=== PATIENT | female | born 1995 | race African-American/Black ===

== ENCOUNTER 2017-02-07 09:58 | Emergency (ER) | payer SELFPAY ==
[2017-02-07 10:02] VITALS: BP 140/61; PULSE 114; TEMP 98.2; BMI 19.5
--- NOTE | 2017-02-07 10:43 | PDOC ---
History of Present Illness - General Chief Complaint: Eye Problem Stated Complaint: eye contusion Time Seen by Provider: 02/07/17 10:09 - History of Present Illness Initial Comments: 02/07/17 10:41 CHIEF COMPLAINT: eye contusion HISTORY OF PRESENT ILLNESS: 21 yo F with no PMH [facility] to [facility] with pain to L forehead s/p injury from work 4 days ag. Patient states she works at [employer] and she was putting a bowl up on a high rack when it fell and hit her head. She denies any change in vision but states she has a bit of a headache and felt dizzy a little yestedray. Patient reports being very anxious to be in a hospital because she is afraid of doctors. No recent travel or sick contacts. PAST MEDICAL HISTORY: Denies past medical history FAMILY HISTORY: Denies SOCIAL HISTORY: Denies tobacco, alcohol, illicit drug use. SURGICAL HISTORY: Denies ALLERGIES: No known drug allergies REVIEW OF SYSTEMS General/Constitutional: Denies fever or chills. Denies weakness, weight change. HEENT: "I felt a little dizzy after my head was hit." Denies change in vision. Denies ear pain or discharge. Denies sore throat. Cardiovascular: Denies chest pain or shortness of breath. Respiratory: Denies cough, wheezing, or hemoptysis. Gastrointestinal: Denies nausea, vomiting, diarrhea or constipation. Denies rectal bleeding. Genitourinary: Denies dysuria, frequency, or change in urination. Musculoskeletal: Denies joint or muscle swelling or pain. Denies neck or back pain. Skin and breasts: Denies rash or easy bruising. PHYSICAL EXAM General Appearance: Well-appearing, appropriately dressed. No apparent distress , no intoxication. HEENT: Faint ecchymosis to forehead at level of orbital bone. Mild photophobia appreciated. EOMI, PERRLA, normal ENT inspection, normal voice, TMs normal, pharynx normal. No conjunctival pallor. Neck: Supple. Trachea midline. No tenderness, rigidity, carotid bruit, stridor , lymphadenopathy, or thyromegaly. Respiratory/Chest: Lungs CTAB. Cardiovascular: RRR. S1, S2. Integumentary: Appropriate color, dry, warm. No cyanosis, erythema, jaundice or rash Neurologic: regional business development manager II-XII intact. Fully oriented, alert. Appropriate mood/affect. Motor strength 5/5. No appreciable EOM palsy, facial droop or sensory deficit. A&Ox3, follow commands, respond appropriately CN2-12: conjugate gaze, pupil round, equal and reactive to light. Visual field full to confrontation. EOMI without nystagmus, pursuit is smooth without saccade. Facial sensation and muscle activation intact bilaterally. Hearing intact bilaterally. Palate elevate symmetrically. Shoulder shrug and neck turn full strength. Tongue protrude midline. Motor: UE and LE strength 5/5 throughout bilaterally. Muscle tone and bulk normal. Cerebellar: Gait narrow based. No shuffling. Full hip flexion and knee flexion. Negative Romberg No involuntary movement noted. No pronator drift. No clonus. Past History - Past Medical History Allergies/Adverse Reactions: Allergies Allergy/AdvReac Type Severity Reaction Status Date / Time No Known Allergies Allergy Verified 02/07/17 10:02 Home Medications: Ambulatory Orders Naproxen 250 mg PO BID #14 tablet 02/07/17 Other medical history: pt denies - Psycho/Social/Smoking Cessation Hx Suicidal Ideation: No Smoking History: Never smoked Information on smoking cessation initiated: No Hx Alcohol Use: No Drug/Substance Use Hx: No Substance Use Type: None *Physical Exam - Vital Signs Last Vital Signs Temp Pulse Resp BP Pulse Ox 98.2 F 114 H 18 140/61 100 02/07/17 10:00 02/07/17 10:00 02/07/17 10:00 02/07/17 10:00 02/07/17 10:00 Medical Decision Making - Medical Decision Making 02/07/17 16:00 21 yo F with no PMH presents [facility] with mild headache s/p forehead injury. No CT indicated at this time. Patient is tachy to 117 but is tearful and reports being very anxious because she doesn't like doctors, tachycardia likely due to anxiety. Advised patient to take medication as prescribed and follow up with neuro within the week. Advised patient of signs and symptoms for return to ED. Patient verbalized understanding and agrees to plan. *DC/Admit/Observation/Transfer Diagnosis at time of Disposition: Forehead contusion Qualifiers: Encounter type: initial encounter Qualified Code(s): S00.83XA - Contusion of other part of head, initial encounter - Discharge Dispostion Disposition: HOME Condition at time of disposition: Stable Admit: No - Prescriptions Prescriptions: Naproxen 250 mg PO BID #14 tablet - Referrals Referrals: Johnathan Lutz MD [Staff Physician] - - Patient Instructions Printed Discharge Instructions: DI for Postconcussion Syndrome Additional Instructions: Please take medication as prescribed and follow up with neurologist within 2-3 days as discussed. If you experience any change in vision, difficulty speaking , swallowing, or walking, or your family or friends notice any other change in behavior, or you develop any new or worsening symptoms, please return to the ER. - Post Discharge Activity Work/School Note: Back to Work
== END 2017-02-07 11:06 | disposition home or self-care (01) ==
LOC: JERFT 09:58
DX: S00.83XA Contusion of other part of head, initial encounter (principal); W20.8XXA Other cause of strike by thrown, projected or falling object, initial encounter; Y93.89 Activity, other specified; Y92.511 Restaurant or cafe as the place of occurrence of the external cause; Y99.0 Civilian activity done for income or pay
CPT/HCPCS: 99281-25

== ENCOUNTER 2022-11-04 09:10 | Inpatient (IN) | payer OTHER ==
[2022-11-04] MEDS ORDERED: ELECTROLYTE-148 SOLN 1,000 ML IV SCH (10:00)
[2022-11-04] MEDS ORDERED: FENTANYL/BUPIVACAINE/NS/PF - PCEA - 50 ML DISP.SYRIN EP ONE (10:24)
[2022-11-04] MEDS ORDERED: BUPIVACAINE HCL/PF 0.25% (2.5MG/ML) 10 ML VIAL ONE (10:54)
[2022-11-04 11:42] LABS: BASO % 0.4 % (0-2.0); EOS % 0.1 % (0-4.5); HEMATOCRIT 39.7 % (32.4-45.2); HEMOGLOBIN 13.1 GM/dL (10.7-15.3); LYMPH % 6.6 % (8-40); MCH 27.1 pg (25.7-33.7); MCHC 33.1 g/dl (32.0-36.0); MEAN CELL VOLUME 81.6 fl (80-96); MEAN PLT VOLUME 8.3 fl (7.5-11.1); MONO % 4.9 % (3.8-10.2); PLATELET COUNT 286 10^3/uL (134-434); RBC 4.86 M/mm3 (3.60-5.2); RDW 14.7 % (11.6-15.6); WHITE BLOOD COUNT 18.1 K/mm3 (4.0-10.0)
[2022-11-04 11:50] LABS: INR 0.96 (0.83-1.09)
[2022-11-04 11:53] LABS: ACTIVATED PTT 26.9 SECONDS (25.2-36.5)
[2022-11-04 11:59] LABS: CALCIUM 9.4 mg/dL (8.5-10.1)
[2022-11-04 12:03] LABS: CREATININE 0.6 mg/dL (0.55-1.3)
[2022-11-04] MEDS ORDERED: NALOXONE HCL 0.4 MG/ML VIAL IVPUSH PRN (12:05)
[2022-11-04] MEDS ORDERED: FENTANYL/BUPIVACAINE/NS/PF - PCEA - 50 ML DISP.SYRIN EP SCH (12:15)
[2022-11-04 12:19] VITALS: BMI 36.0
[2022-11-04] MEDS ORDERED: OXYTOCIN 30 UNITS in 0.9% NS 30 UNIT/500 ML INFUS.BAG IVPB ONE (13:16)
[2022-11-04] MEDS ORDERED: OXYTOCIN 20 UNITS in 0.9% NS 20 UNIT/1,000 ML INFUS.BAG IV ONE (13:17)
[2022-11-04] MEDS ORDERED: LIDOCAINE HCL 1% PRESERVATIVE FREE - 30ML VIAL ONE (13:30)
[2022-11-04] MEDS ORDERED: ACETAMINOPHEN 325 MG TABLET (FP) PO PRN (13:59)
[2022-11-04] MEDS ORDERED: METHYLERGONOVINE MALEATE 0.2 MG/1 ML AMP IM PRN (13:59)
[2022-11-04] MEDS ORDERED: BISACODYL 10 MG SUPP.RECT RC PRN (13:59)
[2022-11-04] MEDS ORDERED: oxyCODONE HCL 5 MG TABLET PO PRN (13:59)
[2022-11-04] MEDS ORDERED: BENZOCAINE 28 GM HEMORRHOIDAL OINTMENT TP PRN (13:59)
[2022-11-04] MEDS ORDERED: OXYTOCIN 20 UNITS in 0.9% NS 20 UNIT/1,000 ML INFUS.BAG IV SCH (14:00)
[2022-11-04 14:41] LABS: CORD BASE EXCESS -8.3 mmol/L (0-2); CORD HCO3 19.6 mmHg (20-29); CORD pH 7.221 (7.14-7.44)
[2022-11-04 14:44] LABS: CORD HCO3 22.6 mmHg (20-29); CORD PCO2 66.9 mmHg (30-78); CORD pH 7.146 (7.14-7.44)
[2022-11-04 14:44] LABS: METHADONE, UR NEGATIVE (NEGATIVE); OPIATES, URI NEGATIVE (NEGATIVE); PHENCYCLIDINE,URINE NEGATIVE (NEGATIVE); URINE BARBITURATES NEGATIVE (NEGATIVE); URINE BENZODIAZEPINES NEGATIVE (NEGATIVE)
[2022-11-04 14:45] LABS: COCAINE, UR NEGATIVE (NEGATIVE)
[2022-11-04 14:50] LABS: URINE AMPHETAMINES NEGATIVE (NEGATIVE)
[2022-11-04] MEDS: BENZOCAINE 20% 57 GM BOTTLE TP PRN (18:36)
[2022-11-04] MEDS: IBUPROFEN 600 MG TABLET (FP) PO PRN (18:37)
[2022-11-04] MEDS: WITCH HAZEL 50% (TUCKS) 40 PAD/JAR PAD TP PRN (18:37)
[2022-11-05] MEDS: IBUPROFEN 600 MG TABLET (FP) PO PRN ×5 (00:50→20:45)
[2022-11-05] MEDS: WITCH HAZEL 50% (TUCKS) 40 PAD/JAR PAD TP PRN (06:46)
[2022-11-05] MEDS: BENZOCAINE 20% 57 GM BOTTLE TP PRN (06:47)
[2022-11-05 07:54] LABS: BASO % 0.5 % (0-2.0); EOS % 0.3 % (0-4.5); HEMATOCRIT 34.5 % (32.4-45.2); HEMOGLOBIN 11.4 GM/dL (10.7-15.3); LYMPH % 17.5 % (8-40); MCHC 33.1 g/dl (32.0-36.0); MEAN CELL VOLUME 81.6 fl (80-96); MEAN PLT VOLUME 7.8 fl (7.5-11.1); MONO % 7.6 % (3.8-10.2); NEUT % 74.1 % (42.8-82.8); PLATELET COUNT 237 10^3/uL (134-434); RBC 4.23 M/mm3 (3.60-5.2); RDW 14.4 % (11.6-15.6); WHITE BLOOD COUNT 15.7 K/mm3 (4.0-10.0)
[2022-11-05] MEDS ORDERED: SENNOSIDES/DOCUSATE COMBO (SENNA PLUS) TABLET (UD) PO PRN (22:00)
[2022-11-06] MEDS: IBUPROFEN 600 MG TABLET (FP) PO PRN ×2 (03:58→08:26)
[2022-11-06 08:33] VITALS: BP 113/73; PULSE 87; RESP 16; TEMP 97.9
== END 2022-11-06 12:30 | disposition home or self-care (01) | DRG 560 ==
LOC: JDEL 09:10 → JLDR 09:30 → J3W 16:15
PROVIDERS: ADMIT Obstetrics & Gynecology; ATTEND Obstetrics & Gynecology
PROC: 10E0XZZ Delivery of Products of Conception, External Approach (ICD-10-PCS; principal; 2022-11-04)
PROC: 0KQM0ZZ Repair Perineum Muscle, Open Approach (ICD-10-PCS; 2022-11-04)
DX: O48.0 Post-term pregnancy (principal); Z3A.40 40 weeks gestation of pregnancy; O70.1 Second degree perineal laceration during delivery; Z37.0 Single live birth
CPT/HCPCS: 36415; 36600; 59025; 59409; 80048; 80307; 82803; 85025; 85610; 85730; 86780; 86850; 86900; 86901; C9803-CS; U0003; U0005